=== PATIENT | male | born 1980 | race Caucasian/White ===

== ENCOUNTER 2017-10-31 22:06 | Emergency (ER) | payer SELFPAY ==
[~2017-10-31] VITALS: Ht 185.4 cm; Wt 95.5 kg
[~2017-10-31 22:06] MED LIST: BUPR-197 PO; HYDR-3533 PO; PROZ20CA11 PO; TRAZ100 PO; TRIA.1%T TOP
[2017-10-31 22:15] VITALS: BP 139/75; PULSE 79; RESP 16; TEMP 98; O2SAT 100
[2017-10-31] MEDS ORDERED: LEXA20TA PO (22:18)
[2017-10-31] MEDS ORDERED: REME15TA PO (22:18)
[2017-10-31] MEDS ORDERED: BUPR100CR PO (22:18)
[2017-10-31] MEDS ORDERED: LITH600C PO (22:18)
[2017-10-31] MEDS ORDERED: CLINDAMYCIN PHOS 300 MG/2 ML VIAL IM ONE (22:45)
[2017-10-31] MEDS ORDERED: BACT800T5 PO (22:48)
[2017-10-31] MEDS ORDERED: CODE30TA2 PO (22:48)
--- NOTE | 2017-10-31 22:49 | PD ---
HPI Chief Complaint: Skin Problem Time Seen by Provider: 22:42 Travel History International Travel<30 days: No Contact w/Intl Traveler<30days: No Traveled to known affect area: No History of Present Illness HPI ABOUT ONE WEEK AGO WAS WORKING ON [employer] AND GOT POKED BY FROND FROM PALM, THAT HE WAS CUTTING OFF, HE KEPT WAITING HOPING IT WOULD GO AWAY BUT INSTEAD, SWELLING TO RIGHT SHOULDER (DELTOID) INCREASED WELL REDNESS TO AREA INCREASED. NO ALLEVIATING /AGGRAVATING FACTORS. PATIENT DENIES ASSOC FACTORS OF FEVER/COUGH/URI/CP/SAHA/ABDPAIN/BACKPAIN. ALL:DENIES PMHX: DENIES PSHX:ANKLE SURGERY ABOUT 10 YRS AGO, LAST TIME TETANUS WAS UPDATED PFSH Past Medical History Hx Anticoagulant Therapy: No Anxiety: Yes Depression: Yes Cancer: No Cardiovascular Problems: No Chemotherapy: No Cerebrovascular Accident: No Diabetes: No Endocrine: No Genitourinary: No Hepatitis: Yes (HEP C) Immune Disorder: No Musculoskeletal: No Neurologic: No Psychiatric: Yes Reproductive: No Respiratory: No Tetanus Vaccination: > 5 Years Past Surgical History Other Surgery: Yes (SK[facility]) Social History Alcohol Use: No Tobacco Use: Yes (1PPD) Substance Use: Yes (QUIT - JAN 2017) Allergies-Medications (Allergen,Severity, Reaction): Coded Allergies: No Known Allergies (Unverified , 07/12/16) Reported Meds & Prescriptions Reported Meds & Active Scripts Active Reported Remeron (Mirtazapine) 15 Mg Tab 15 Mg PO HS Lexapro (Escitalopram Oxalate) 20 Mg Tab 20 Mg PO DAILY [place] Carbonate 600 Mg Cap 600 Mg PO DAILY Wellbutrin SR 12 HR (Bupropion HCl) 100 Mg Tab 100 Mg PO Q12HR Review of Systems General / Constitutional: No: Fever Eyes: No: Visual changes HENT: No: Headaches Cardiovascular: No: Chest Pain or Discomfort Respiratory: No: Shortness of Breath Gastrointestinal: No: Abdominal Pain Genitourinary: No: Dysuria Musculoskeletal: No: Pain Skin: Positive Lumps Neurologic: No: Weakness Psychiatric: No: Depression Endocrine: No: Polydipsia Hematologic/Lymphatic: No: Easy Bruising Physical Exam Narrative GENERAL: SKIN: Warm and dry. LATERAL DELTOID REGION HAS ERYTHEMA/WARMTH/INDURATED AREA ABOUT 5CM IN DIAMETER, WITHOUT FLUCTUANCE/STREAKING HEAD: Atraumatic. Normocephalic. EYES: Pupils equal and round. No scleral icterus. No injection or drainage. ENT: No nasal bleeding or discharge. Mucous membranes pink and moist. NECK: Trachea midline. No JVD. CARDIOVASCULAR: Regular rate and rhythm. RESPIRATORY: No accessory muscle use. Clear to auscultation. Breath sounds equal bilaterally. GASTROINTESTINAL: Abdomen soft, non-tender, nondistended. Hepatic and splenic margins not palpable. MUSCULOSKELETAL: Extremities without clubbing, cyanosis, or edema. No obvious deformities. NEUROLOGICAL: Awake and alert. No obvious cranial nerve deficits. Motor grossly within normal limits. Five out of 5 muscle strength in the arms and legs. Normal speech. PSYCHIATRIC: Appropriate mood and affect; insight and judgment normal. Data Data Last Documented VS Vital Signs Date Time Temp Pulse Resp B/P (MAP) Pulse Ox O2 Delivery O2 Flow Rate FiO2 10/31/17 22:15 98.0 79 16 139/75 (96) 100 Room Air Orders Orders Clindamycin Inj (Cleocin Inj) (10/31/17 22:45) [facility] Medical Decision Making Medical Screen Exam Complete: Yes Emergency Medical Condition: Yes Medical Record Reviewed: Yes Differential Diagnosis CELLULITIS V LYMPHANGITIS V ABSCESS Narrative Course AFTER CLINICAL EVALUATION FINDINGS C/W CELLULITIS WILL BE GIVEN CLINDA IM PRIOR TO DISCHARGE Diagnosis Primary Impression: RIGHT DELTOID CELLULITIS Patient Instructions: Cellulitis (ED), General Instructions Scripts Codeine-Acetaminophen (Codeine-Acetaminophen) 30-300 mg Tab 1 TAB PO Q4H Y for PAIN, #12 TAB 0 Refills Prov: Edilberto Musa MD 10/31/17 Sulfamethoxazole-Trimethoprim (Bactrim DS) 800-160 Mg Tab 1 TAB PO BID for Infection, #14 TAB 0 Refills Prov: Edilberto Musa MD 10/31/17 Disposition: 01 DISCHARGE HOME Condition: Stable Edilberto Musa MD Oct 31, 2017 22:49
== END 2017-10-31 23:40 | disposition home or self-care (01) ==
LOC: NEPD 22:06
DX: L03.113 Cellulitis of right upper limb (principal); F41.9 Anxiety disorder, unspecified; F32.9 Major depressive disorder, single episode, unspecified; F17.200 Nicotine dependence, unspecified, uncomplicated; Z79.899 Other long term (current) drug therapy; Z86.19 Personal history of other infectious and parasitic diseases
CPT/HCPCS: 96372

== ENCOUNTER 2018-01-21 22:23 | Emergency (ER) | payer SELFPAY ==
[~2018-01-21] VITALS: Ht 185.4 cm; Wt 102.0 kg
[~2018-01-21 22:23] MED LIST changes: +BACT800T5 PO; -BUPR-197 PO; +BUPR100CR PO; +CODE30TA2 PO; -HYDR-3533 PO; +LEXA20TA PO; +LITH600C PO; -PROZ20CA11 PO; +REME15TA PO; -TRAZ100 PO; -TRIA.1%T TOP
[2018-01-21 22:30] VITALS: BP 143/79; PULSE 85; RESP 18; TEMP 98.6; O2SAT 99
[2018-01-21] MEDS ORDERED: ZITHTAB PO (22:53)
[2018-01-21] MEDS ORDERED: ALBU6.7H INH (22:53)
--- NOTE | 2018-01-21 22:56 | PD ---
HPI Chief Complaint: Cold / Flu Symptoms Time Seen by Provider: 22:48 Travel History International Travel<30 days: No Contact w/Intl Traveler<30days: No Traveled to known affect area: No History of Present Illness HPI 37-year-old white male presents emergency department with a 2 week history of cough and congestion. Patient is a smoker but has not been able smoke nearly as much because of his congestion and cough. He states that he has had some subjective fever, ear pain, sore throat, cough, yellowish-green productive sputum. Patient does admit to some pleuritic chest wall pain with coughing. No shortness of breath or wheezing. No nausea vomiting. No abdominal pain or diarrhea. No dysuria or frequency. Symptoms are moderate. Worse with coughing. No alleviating factor. PFSH Past Medical History Hx Anticoagulant Therapy: No Anxiety: Yes Depression: Yes Cancer: No Cardiovascular Problems: No Chemotherapy: No Cerebrovascular Accident: No Diabetes: No Endocrine: No Genitourinary: No Hepatitis: Yes (HEP C) Immune Disorder: No Musculoskeletal: No Neurologic: No Psychiatric: Yes Reproductive: No Respiratory: No Tetanus Vaccination: Unknown Influenza Vaccination: No Past Surgical History Other Surgery: Yes (SKIN [facility] 2005) Social History Alcohol Use: No Tobacco Use: Yes (1PPD) Substance Use: No (QUIT - JAN 2017) Allergies-Medications (Allergen,Severity, Reaction): Coded Allergies: No Known Allergies (Unverified Allergy, Unknown, 01/21/18) Reported Meds & Prescriptions Reported Meds & Active Scripts Active Proventil Hfa 6.7 GM Inh (Albuterol Sulfate) 90 Mcg/Act Aer 2 Puff INH Q4-6H PRN Zithromax Z-Juan C (Azithromycin) 250 Mg Dspk 250 Mg PO DIRECTED 500 MG (2 tabs) day 1, then 1 tab days 2-5. Codeine-Acetaminophen 30-300 mg Tab 1 Tab PO Q4H PRN Bactrim DS (Sulfamethoxazole-Trimethoprim) 800-160 Mg Tab 1 Tab PO BID Reported Remeron (Mirtazapine) 15 Mg Tab 15 Mg PO HS Lexapro (Escitalopram Oxalate) 20 Mg Tab 20 Mg PO DAILY [place] Carbonate 600 Mg Cap 600 Mg PO DAILY Wellbutrin SR 12 HR (Bupropion HCl) 100 Mg Tab 100 Mg PO Q12HR Review of Systems Except as stated in HPI: all other systems reviewed are Neg Physical Exam Narrative GENERAL: Well-developed, well-nourished in no acute distress. Nontoxic appearing. HEAD: Normocephalic, atraumatic. EYES: Pupils equal round and reactive. Extraocular motions intact. No scleral icterus. No injection or drainage. ENT: TMs clear without erythema. The external auditory canals clear. Nose: clear . Posterior pharynx is pink and moist. No tonsillar edema or exudate. Uvula midline. Airway patent. NECK: Trachea midline.Supple, nontender, moves head freely. No central bony tenderness or spasm. CARDIOVASCULAR: Regular rate and rhythm without murmurs, gallops, or rubs. RESPIRATORY: Few scattered rhonchi with occasional fine expiratory wheeze. No rales. No respiratory distress. GASTROINTESTINAL: Abdomen soft, non-tender, nondistended. No hepato-splenomegaly , or palpable masses. No guarding. EXTREMITIES: No clubbing, cyanosis, or edema. No joint tenderness, effusion, or edema noted. BACK: Nontender without deformity or crepitance. No flank tenderness. Data Data Last Documented VS Vital Signs Date Time Temp Pulse Resp B/P (MAP) Pulse Ox O2 Delivery O2 Flow Rate FiO2 01/21/18 22:30 98.6 85 18 143/79 (100) 99 Orders Orders Ed Discharge Order (01/21/18 22:51) Azithromycin (Zithromax) (01/21/18 23:00) Benzonatate (Tessalon) (01/21/18 23:00) MDM Medical Decision Making Medical Screen Exam Complete: Yes Emergency Medical Condition: Yes Medical Record Reviewed: Yes Differential Diagnosis MDM: High Differential diagnoses: Pneumonia, bronchitis, URI, asthma, RAD, legionnaire's disease, SARS, ARDS, influenza, bronchiolitis, RSV,PE,CHF Narrative Course Patient is given Zithromax 500 mg and Tessalon Perles 200 mg p.o. This is bronchitis Diagnosis Primary Impression: acute bronchitis Patient Instructions: General Instructions Departure Forms: Tests/Procedures, Work Release Special Instructions: No work 2 days. Additional Instructions: Rest. Increase fluids. Tylenol and Advil. Robitussin-DM. Zithromax and albuterol. Followup with your Dr. in one week. Return to the ER for any problems. Med/Other Pt SpecificInfo: Prescription(s) given Scripts Albuterol 6.7 GM Inh (Proventil Hfa 6.7 GM Inh) 90 Mcg/Act Aer 2 PUFF INH Q4-6H Y for SHORTNESS OF BREATH, #1 INHALER 0 Refills Prov: Ruth Alarcon MD 01/21/18 Azithromycin (Zithromax Z-Juan C) 250 Mg Dspk 250 MG PO DIRECTED for Infection, #1 DSPK 0 Refills 500 MG (2 tabs) day 1, then 1 tab days 2-5. Prov: Ruth Alarcon MD 01/21/18 Disposition: 01 DISCHARGE HOME Condition: Stable Radhames Rosario Jan 21, 2018 22:56
[2018-01-21] MEDS ORDERED: BENZONATATE 100 MG CAP PO ONE (23:00)
[2018-01-21] MEDS ORDERED: AZITHROMYCIN 250 MG TAB PO ONE (23:00)
== END 2018-01-21 23:26 | disposition home or self-care (01) ==
LOC: NEPD 22:23
DX: J20.9 Acute bronchitis, unspecified (principal); F17.210 Nicotine dependence, cigarettes, uncomplicated
CPT/HCPCS: 99283